=== PATIENT | male | born 1990 | race Two or more races ===

== ENCOUNTER 2021-12-12 12:01 | Emergency (ER) | payer SELFPAY ==
[~2021-12-12] VITALS: Ht 167.6 cm; Wt 101.2 kg
--- NOTE | 2021-12-12 12:02 | NUR ---
SENT TO ER 9. [facility] C/O R FOOT PAIN."LIFTED HEAVY METAL AND DROPPED AT MY FOOT YESTERDAY", 06/26 PS.
[2021-12-12] MEDS ORDERED: IBUPROFEN 400 MG TABLET ONE (12:40)
--- NOTE | 2021-12-12 12:40 | NUR ---
X RAY AT BEDSIDE
[2021-12-12] MEDS ORDERED: MORPHINE SULFATE INJ 2 MG/ML DISP.SYRIN IV ONE (13:00)
[2021-12-12] MEDS ORDERED: IBUPROFEN 400 MG TABLET PO ONE (13:00)
[2021-12-12] MEDS ORDERED: PROPOFOL 1,000 MG/100 ML BOTTLE IV ONE (13:00)
[2021-12-12] MEDS ORDERED: IBUP-1957 PO (13:47)
--- NOTE | 2021-12-12 13:54 | NUR ---
Patient discharged to home in stable condition. Written and verbal after care instructions given. Patient verbalizes understanding of instruction.
[2021-12-12 13:55] VITALS: BP 152/92
== END 2021-12-12 13:55 | disposition home or self-care (01) ==
LOC: ER 12:08
DX: S90.31XA Contusion of right foot, initial encounter (principal); W20.8XXA Other cause of strike by thrown, projected or falling object, initial encounter; Y93.01 Activity, walking, marching and hiking; Y92.89 Other specified places as the place of occurrence of the external cause; Y99.8 Other external cause status
CPT/HCPCS: 73630-TC